=== PATIENT | male | born 1975 | race Two or more races ===

== ENCOUNTER 2020-04-17 21:00 | Emergency (ER) | payer OTHER ==
[~2020-04-17] VITALS: Ht 165.1 cm; Wt 127.0 kg
[2020-04-17 23:36] VITALS: BP 139/93
== END 2020-04-17 23:56 | disposition home or self-care (01) ==
LOC: ER 21:09 → EDBD 21:09 → ER 23:56
DX: S33.5XXA Sprain of ligaments of lumbar spine, initial encounter (principal); Z91.010 Allergy to peanuts; X50.9XXA Other and unspecified overexertion or strenuous movements or postures, initial encounter; Y93.H1 Activity, digging, shoveling and raking; Y92.89 Other specified places as the place of occurrence of the external cause; Y99.0 Civilian activity done for income or pay
CPT/HCPCS: 72131